=== PATIENT | male | born 1985 | race Caucasian/White ===

== ENCOUNTER 2019-02-17 10:07 | Emergency (ER) | payer MEDICAID, SELFPAY ==
[2019-02-17 10:07] VITALS: BP 139/74; PULSE 94; RESP 18; TEMP 36.4; O2SAT 99; BMI 30.4
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
--- NOTE | 2019-02-17 10:40 | RAD_ITS ---
STUDY: X-RAY - RIGHT KNEE REASON FOR EXAM: Male, 33 years old. Pain following injury. TECHNIQUE: 4 view(s) of the knee. COMPARISON: None. FINDINGS: Normal visualized distal femur. Normal visualized proximal tibia and fibula. Normal proximal tibiofibular articulation. Normal medial femorotibial compartment. Normal lateral femorotibial compartment. Normal patellofemoral articulation. The soft tissue structures are unremarkable. RAD/Knee 4 or More Views IMPRESSION: Normal x-ray examination of the knee. Electronically Signed: Blayne Cabrera, at 11:15 EDT , Service support ,
== END 2019-02-17 11:57 | disposition home or self-care (01) ==
PROVIDERS: Emergency Provider Emergency Medicine; Family Provider Family Medicine; PCP Family Medicine
DX: S83.91XA Sprain of unspecified site of right knee, initial encounter (principal); K21.9 Gastro-esophageal reflux disease without esophagitis; Z79.899 Other long term (current) drug therapy; X58.XXXA Exposure to other specified factors, initial encounter; Y93.89 Activity, other specified; Y92.89 Other specified places as the place of occurrence of the external cause; Y99.8 Other external cause status
CPT/HCPCS: 73564; 99283

== ENCOUNTER 2019-11-10 10:44 | Emergency (ER) | payer MEDICAID, SELFPAY ==
[2019-11-10 10:45] VITALS: BP 146/84; PULSE 97; RESP 16; TEMP 36.4; O2SAT 96; BMI 30.1
--- NOTE | 2019-11-10 10:56 | RAD_ITS ---
STUDY: X-RAY - RIGHT HAND REASON FOR EXAM: Male, 34 years old. PAIN AT BASE OF 5TH METACARPAL -- PT UNABLE TO SEPARATE FINGERS FOR FAN LATERAL TECHNIQUE: 3 view(s) of the hand. COMPARISON: None. FINDINGS: Normal radiocarpal articulation. Normal distal radioulnar joint. Normal visualized carpal bones. Normal carpal articulations Normal carpometacarpal articulation of the thumb. Normal second through fifth carpometacarpal joints. Normal metacarpi. Normal metacarpophalangeal joint of the thumb. Normal interphalangeal joint of the thumb. Normal proximal and distal phalanges of the thumb. Normal metacarpophalangeal joints of the second through fifth fingers. Normal proximal and distal interphalangeal joints of the second through fifth fingers. Normal phalanges of the second through fifth fingers. The soft tissue structures are unremarkable. RAD/Hand Min 3 Views IMPRESSION: Normal x-ray examination of the hand. Electronically Signed: Blayne Cabrera, at 11:17 EST , Service support ,
--- NOTE | 2019-11-10 11:33 | ED.VIS.GEN ---
History of Present Illness Chief Complaint: Upper Extremity Injury Informant: Patient Narrative: Patient went to strike his dog but instead struck the palm of his hand near the fourth and fifth MCP joint. He notes pain some swelling. He is right-hand dominant. Past Medical History - Allergies and Home Meds Allergies/Adverse Reactions: Allergies ibuprofen Allergy (Verified 02/17/19 10:10) Hives Primary Care Physician: Montana Obregon MD [Primary Care Provider] - Smoking Status: Former smoker Review of Systems General: Denies: Chills, Fever, Sweats Eyes: Denies: Visual changes - bilaterally, Diplopia ENT: Denies: Rhinorrhea, Sore throat Cardiovascular: Denies: Chest pain, Palpitations Respiratory: Denies: Dyspnea, Cough, Dyspnea on exertion Gastrointestinal: Denies: Abdominal pain, Nausea, Vomiting, Diarrhea, Melena, Hematochezia Genitourinary: Denies: Dysuria, Hematuria, Frequency Musculoskeletal: Reports: Extremity Pain. Denies: Back pain Skin: Denies: Rash, Wounds Neurological: Denies: Headache, Weakness, Numbness Physical Exam Vital Signs/Narrative: Vital Signs Temp Pulse Resp BP Pulse Ox 11/10/19 10:45 97.5 F L 97 16 146/84 H 96 Inital Vital Signs reviewed: Yes General: Well nourished, Well developed, No Acute Distress Head: Normocephalic, Atraumatic Eyes: Perrl, EOMI ENT: Moist mucous membranes, No rhinorrhea Neck: Supple, Nontender Cardiovascular: Regular rate, Regular rhythm, No murmurs Respiratory: No distress, CTA bilaterally, Chest nontender Abdomen: Soft, Nontender, Nondistended, Normal bowel sounds Back: Nontender, Normal Inspection Extremities: Tenderness - Tenderness along the fourth and fifth metacarpal. No malrotation. Mild swelling. Neurovascularly intact Skin: Normal color, No rash Neurological: Alert, Oriented x3, Cranial nerves II-XII grossly intact, Normal Strength, Normal Sensation Psychological: Normal affect, Normal Mood Diagnostic/Tx/Re-eval - Medical Decision Making X-rays of the hand were negative for fracture. Patient will be treated conservatively as a contusion return if worsening or concerns follow-up 10 to 14 days if not improved ED Disposition - Plan for ED Patient: Disposition: Home or Assisted Living Diagnosis: Contusion of right hand Instructions: CONTUSION, Hand Referrals: Montana Obregon MD [Primary Care Provider] - 10-14 Days if not better
== END 2019-11-10 11:47 | disposition home or self-care (01) ==
PROVIDERS: Emergency Provider Emergency Medicine; PCP Family Medicine
DX: S60.221A Contusion of right hand, initial encounter (principal); Z87.891 Personal history of nicotine dependence; W22.09XA Striking against other stationary object, initial encounter; Y93.K9 Activity, other involving animal care; Y92.009 Unspecified place in unspecified non-institutional (private) residence as the place of occurrence of the external cause; Y99.8 Other external cause status
CPT/HCPCS: 73130; 99282

== ENCOUNTER 2020-04-08 14:12 | Emergency (ER) | payer MEDICAID, SELFPAY ==
[2020-04-08 14:13] VITALS: BP 146/81; PULSE 104; RESP 18; TEMP 36.3; O2SAT 98; BMI 30.8
--- NOTE | 2020-04-08 14:35 | EKG12_ITS ---
Test Reason : DYSRHYTHMIA Blood Pressure : / mmHG Vent. Rate : 082 BPM Atrial Rate : 082 BPM P-R Int : 148 ms QRS Dur : 094 ms QT Int : 356 ms P-R-T Axes : 014 009 022 degrees QTc Int : 415 ms Normal sinus rhythm Moderate voltage criteria for LVH, may be normal variant Borderline ECG Confirmed by NABEEL MOODY, HARJINDER ([id number]), copy editor DERRICK VIEIRA ([id number]) on 04/11/2020 8:19:38 AM Referred By: BB Confirmed By:HARJINDER LEES MD
--- NOTE | 2020-04-08 14:35 | US_ITS ---
STUDY: ABDOMINAL ULTRASOUND - RIGHT UPPER QUADRANT REASON FOR VISIT: Male, 34 years old RUQ PAIN COUPLE MONTHS ON AND OFF CAN BE SEVERE PT ATE AROUND 2PM TODAY TECHNIQUE: Ultrasound evaluation of the right upper quadrant was performed with real-time and static montejo-scale imaging. TECHNICAL QUALITY: Adequate. COMPARISON: None. FINDINGS: Liver: The liver measures 16.1 cm. There is increased echogenicity consistent with fatty infiltration. The bile ducts are within normal limits. There is hepatic color flow. The direction of portal flow is hepatopetal. There is no demonstrated mass lesion. Gallbladder: Normal distended gallbladder. The gallbladder wall measures 2.6 mm. There is a negative sonographic Vitale''s sign. There is no pericholecystic fluid. There is a 9 x 7 x 6 mm nonshadowing hyperechoic nonobstructing filling defect of the gallbladder neck that appears nonmobile and is most likely a gallbladder polyp. There is an additional 1 mm polyp of the anterior gallbladder wall in the fundus of the gallbladder. Negative for stones or sludge. Common Bile Duct (C.B.D.): The common bile duct measures 3.2 mm. Pancreas: Nonvisualized pancreas secondary to bowel gas. There is normal echogenicity of the pancreas. There is no demonstrated pancreatic mass or cyst. Right Kidney: Normal size of the right kidney. The right kidney measures 10.7 x 4.1 x 4.6 cm. Normal renal cortex. The right cortex measures 1.1 cm. There is no demonstrated renal mass or cyst. There is no right hydronephrosis. US/Abdomen Limited IMPRESSION: Fatty liver. Normally distended gallbladder without wall thickening. 9 x 7 x 6 mm nonobstructing polyp of the gallbladder neck and a 1 mm polyp of the gallbladder fundus. Negative for stones or sludge. Negative for pericholecystic fluid. Nondistended common bile duct. Nonvisualized pancreas secondary to bowel gas. Normal right kidney. Electronically Signed: Nataly Donnelly MD at 16:26 EDT , Service support ,
--- NOTE | 2020-04-08 14:35 | ED.VIS.GI ---
History of Present Illness Chief Complaint: Abd Pain Informant: Patient, Significant Other - Abdominal Pain/Flank Pain Onset: Month(s) - Several Context: Sudden Onset - Seems random, no obvious triggers Timing: Intermittent Quality: Aching - Right upper quadrant, Cramping - Periumbilical, Dull - Left chest Current Severity: Mild Maximum Severity: Moderate Worsened by: Food - At times, see below, Movement - Right flank/upper quadrant pain Relieved by: Remaining Still - Nausea/Vomiting/Emesis GI Symptom: Negative for: Nausea, Vomiting - Diarrhea/Melena/Hematochezia GI Symptom: - - Light-colored stools today. Negative for: Diarrhea, Melena, Hematochezia Stool Quality: Negative for: Mucous, Black, Maroon, JAVIER per rectum Associated Symptoms: Negative for: Dysuria, Frequency, Hematuria, Urgency Narrative: Patient has been having 3 different types of abdominal pain. The longest one has been for several months, it in his lateral right upper quadrant, comes and lasts for hours or a day or 2, and goes away, is worse with movement, occasionally he has gotten it 5 or 10 minutes after eating. Not associated with any nausea or vomiting. Over the last 2 days he has had 2 different episodes of discomfort in his left chest just below his breast, but not below the costal margin, that has occurred at rest, seem to be worse with movement and palpation, without any pleuritic component or dyspnea, or radiation. It is not there now. He called his doctor and he keeps referring to it as heart pain and as a result they advised him to come to the ER to have it evaluated today. He takes medication for reflux. He states yesterday he was playing video games when it started, and eventually went away on its own without any specific treatment. He also has been having intermittent periumbilical diffuse abdominal cramping that has occurred after meals, yesterday it occurred after eating mushrooms and a dish that his made, and it was fairly quickly after that. It lasted for 30 or 45 minutes or so before going away, that is only occurred several times. He has had an appendectomy no other abdominal surgeries, he takes a PPI for reflux but no other medications, does not take NSAIDs to any significant degree. He has had no fevers. No cough. No blood in the stool or melena, no nausea or vomiting at all with any of this. No palpitations. He is concerned about the possibility of gallstones. - Past Medical History (1) GERD (gastroesophageal reflux disease) Status: Chronic Past Medical History - Allergies and Home Meds Allergies/Adverse Reactions: Allergies ibuprofen Allergy (Verified 04/08/20 14:13) Hives Primary Care Physician: Montana Obregon MD [Primary Care Provider] - Surgical History: appendectomy Lives: Spouse/ Significant Other Smoking Status: Former smoker Review of Systems General: Denies: Chills, Fever, Sweats Eyes: Denies: Visual changes - bilaterally, Diplopia ENT: Denies: Rhinorrhea, Sore throat Cardiovascular: Reports: Chest pain. Denies: Palpitations Respiratory: Denies: Dyspnea, Cough, Dyspnea on exertion Gastrointestinal: Reports: Abdominal pain. Denies: Nausea, Vomiting, Diarrhea, Melena, Hematochezia Genitourinary: Denies: Dysuria, Hematuria, Frequency Musculoskeletal: Denies: Neck pain, Back pain, Swelling, Extremity Pain Skin: Denies: Rash, Wounds Neurological: Denies: Headache, Weakness, Numbness Physical Exam Vital Signs/Narrative: Vital Signs Temp Pulse Resp BP Pulse Ox 04/08/20 14:13 97.4 F L 104 H 18 146/81 H 98 Inital Vital Signs reviewed: Yes General: Well nourished, Well developed, No Acute Distress - Well-appearing no distress, conversive in full sentences Head: Normocephalic, Atraumatic Eyes: Perrl, EOMI ENT: Moist mucous membranes, No rhinorrhea Neck: Supple, Nontender Cardiovascular: Regular rate, Regular rhythm, No murmurs. Negative for: Tachycardia Respiratory: No distress, CTA bilaterally, Chest nontender Abdomen: Soft, Nondistended, Normal bowel sounds, No masses, Tender - Mild throughout right upper quadrant, both medially and laterally, basically throughout the subcostal margin there. No other areas of abdominal tenderness.. Negative for: Guarding, Rebound tenderness, Vitale's sign Back: Nontender, Normal Inspection. Negative for: CVA tenderness Extremities: Nontender, No edema. Negative for: Calf Tenderness Skin: Normal color, No rash Neurological: Alert, Oriented x3, Cranial nerves II-XII grossly intact, Normal Strength, Normal Sensation Psychological: Normal affect, Normal Mood Diagnostic/Tx/Re-eval Impressions Abdomen Ultrasound 07/10/20 14:35 IMPRESSION: Fatty liver. Normally distended gallbladder without wall thickening. 9 x 7 x 6 mm nonobstructing polyp of the gallbladder neck and a 1 mm polyp of the gallbladder fundus. Negative for stones or sludge. Negative for pericholecystic fluid. Nondistended common bile duct. Nonvisualized pancreas secondary to bowel gas. Normal right kidney. Electronically Signed: Nataly Donnelly MD at 16:26 EDT , Service support , 04/08/20 14:35 Abdomen Limited [US] Stat Laboratory Results 04/08/20 04/08/20 04/08/20 14:46 14:46 16:15 WBC 6.3 RBC 5.57 Hgb 15.4 Hct 47.3 MCV 84.9 MCH 27.6 MCHC 32.6 RDW Std Deviation 40.6 RDW Coeff of Tristin 13.1 Plt Count 246 MPV 10.3 Immature Gran % (Auto) 0.300 Neut % (Auto) 47.9 Lymph % (Auto) 38.6 [place] % (Auto) 6.9 Eos % (Auto) 5.3 H Baso % (Auto) 1.0 Absolute Neuts (auto) 3.0 Absolute Lymphs (auto) 2.42 Nucleated RBC % 0 Sodium 141 Potassium 3.4 L Chloride 107 Carbon Dioxide 29.0 Anion Gap 5 BUN 13 Creatinine 1.13 Estim Creat Clear Calc 93.31 Est GFR (MDRD) Af Amer 94 Est GFR (MDRD) Non-Af 78 BUN/Creatinine Ratio 11.5 Glucose 128 H Calcium 8.5 Total Bilirubin 0.50 AST 21 ALT 42 Alkaline Phosphatase 103 Troponin I < 0.015 Total Protein 7.5 Albumin 3.8 Globulin 3.7 Albumin/Globulin Ratio 1.0 Lipase 102 Urine Color Yellow Urine Clarity Sl. Cloudy Urine pH 6.5 Ur Specific [place] 1.010 Urine Protein Negative Urine Glucose (UA) Normal Urine Ketones Negative Urine Occult Blood 10 H Urine Nitrite Negative Urine Bilirubin Negative Urine Urobilinogen Normal Ur Leukocyte Esterase Negative - Medical Decision Making Cardiac work-up is negative, his EKG is normal, we obtained an ultrasound of his right upper quadrant, showed a polyp or 2 in his gallbladder but no signs of infection/inflammation or pericholecystic fluid, or wall thickening. His liver enzymes are normal as are the rest of his labs. He is reassured. I do not think his chest discomfort on the left side is cardiac. Furthermore do not think it is PE or pericarditis. I think it is either muscular or esophageal-related, he did not have it while he was at the emergency department so certainly I am able to provide limited information on that right now. I did a troponin that came back negative which is reassuring that there is not acute myocarditis, ischemia, or anything else dangerous with regards to his heart at this time. I do not think a CT is needed for his abdomen at this time. He can have further outpatient work-up with his doctor, I gave him a prescription for dicyclomine to use as needed, he is already on a PPI for GERD, and we discussed other things that he could try when he gets these pain such as NSAIDs sparingly, and/or antiacids. They are comfortable with that plan. ED Disposition - Plan for ED Patient: Disposition: Home or Assisted Living Diagnosis: Intermittent generalized abdominal pain, Intermittent left-sided chest pain, Gallbladder polyp Instructions: ED Unknown Causes of Abdominal Pain Male Prescriptions: Dicyclomine HCl [Bentyl] 20 mg PO . Q4-6H PRN #20 cap PRN Reason: abdominal pain Transmission Status: Pending to [facility] Referrals: Montana Obregon MD [Primary Care Provider] - 1 Week if not improving
[2020-04-08 14:54] LABS: Absolute Lymphocyte Count 2.42 X10^3/uL (0.83-4.51); Basophil# 0.06 X10^3/uL; Eosinophil# 0.33 X10^3/uL; Eosinophils% 5.3 % (0-5); Hematocrit 47.3 % (40-54); Hemoglobin 15.4 g/dL (13.0-16.5); Lymphocyte # 2.42 X10^3/ul (4.0); Lymphocyte % 38.6 % (19-41); Mean Corp Hgb Conc 32.6 g/dL (32-36); Mean Corpuscular Hgb 27.6 pg (27.0-32.0); Mean Corpuscular Volume 84.9 fL (80-94); Mean Platelet Vol. 10.3 fl (6.2-12.0); Monocyte# 0.43 X10^3/uL; Monocyte% 6.9 % (0-10); NRBC Flagged by Analyzer 0 % (0-5); Neutrophil # 3.01 X10^3/uL (2.7-7.7); Neutrophil % 47.9 % (47-70); Platelet Count 246 K/mm3 (150-450); RBC Distribution Width CV 13.1 % (11.6-14.6); RBC Distribution Width SD 40.6 fl (35.1-43.9); Red Blood Count 5.57 M/mm3 (4.6-6.2); White Blood Count 6.3 K/mm3 (4.4-11.0)
[2020-04-08 15:15] LABS: AST(SGOT) 21 U/L (15-37); Alanine Aminotransfer ALT/SGPT 42 U/L (16-61); Albumin, Serum 3.8 g/dL (3.2-5.0); Alkaline Phosphatase 103 U/L (45-117); Anion Gap 5 (5-15); BUN 13 mg/dL (7-18); BUN/Creat Ratio 11.5 RATIO (10-20); Calcium,Total 8.5 mg/dL (8.5-10.1); Chloride 107 mmol/L (98-107); Creatinine, Serum 1.13 mg/dL (0.70-1.30); EST Glomerular Filtration Rate 78 mL/min (>60); Est Glom Filt Rate - Afr Amer 94 mL/min (>60); Estimated Creatinine Clearance 93.31 ml/min; Globulin 3.7 g/dL (2.2-4.2); Glucose 128 mg/dL (74-106); Lipase 102 U/L (73-393); Potassium 3.4 mmol/L (3.5-5.1); Protein, Total 7.5 g/dL (6.4-8.2); Sodium Level 141 mmol/L (136-145)
[2020-04-08 16:19] LABS: Bacteria 0 SEEN /hpf (None Seen); Mucous, Urine 0 SEEN /hpf (<or=2+); White Blood Cells 0 SEEN /hpf (0-5)
[2020-04-08 16:37] LABS: Color, Urine Yellow (Yellow); Glucose, Dipstick Normal (Normal); Ketone-Dipstick Negative (Negative); Leukocyte Esterase-Dipstick Negative /ul (Negative); Nitrite-Dipstick Negative (Negative); Occult Blood-Urine 10 /ul (Negative); Protein-Dipstick Negative (Negative); Urine Bilirubin Dipstick Negative (Negative); Urine Clarity Sl. Cloudy (Clear); Urine Urobilinogen Normal (Normal); Urine pH 6.5 (5.0 - 8.0)
[2020-04-08 17:33] VITALS: RESP 18
[2020-04-08 17:33] LABS: Red Blood Cells-Urine 0-5 SEEN /hpf (0-5); Squamous Epithelial Cells - UA 0-5 SEEN /hpf (0-5)
== END 2020-04-08 17:51 | disposition home or self-care (01) ==
PROVIDERS: Emergency Provider Emergency Medicine; PCP Family Medicine
DX: K82.4 Cholesterolosis of gallbladder (principal); R07.9 Chest pain, unspecified; R10.84 Generalized abdominal pain; K21.9 Gastro-esophageal reflux disease without esophagitis; K76.0 Fatty (change of) liver, not elsewhere classified; Z79.899 Other long term (current) drug therapy; Z87.891 Personal history of nicotine dependence
CPT/HCPCS: 76705; 80053; 81001; 83690; 84484; 85025; 93005; 99283; A4216

== ENCOUNTER 2021-09-11 17:07 | Emergency (ER) | payer MEDICAID, SELFPAY ==
[2021-09-11 17:08] VITALS: BP 154/84; PULSE 88; RESP 14; TEMP 36.2; O2SAT 100; BMI 31.1
--- NOTE | 2021-09-11 19:05 | EDS_ITS ---
HPI History of Present Illness Chief Complaint: Chest Other Informant: patient Onset/Context/Timing Onset: Hours Activity at onset: sudden and activity on onset Timing: Continuous Quality: Positive for Aching Location: Left Parasternal (Over 7 left rib anterior axillary line) Current Severity: Mild Maximum Severity: Moderate Worsened By: Exertion, Movement of Arm, Movement of Torso and Breathing Relieved By: Nothing Associated Symptoms: Negative for Nausea, Vomiting, Diaphoresis, Dyspnea, Cough, Fever, Lightheadedness, Acid Reflux and Palpitations Narrative Narrative: Patient is a 36-year-old male who was doing something under the [employer]. When he went to roll he felt a pop and exquisite pain. He had similar pain when he had a fractured rib as well as intercostal muscle strain. He presents for evaluation. He denies shortness of breath. He denies hemoptysis. He denies direct trauma. He did not roll over onto anything. He has no other complaints. Prior Similar Symptoms: Yes (Fractured rib and muscle strain) CVD Risk Factors: Negative for Hypertension, Diabetes, Hypercholesterolemia, Family History 1' </=55 and Smoking PE Risk Factors: Negative for Recent Travel/Surgery, Recent Immobilization, Bety or DVT or PE, Cancer and OCP + Smoking + >/=35 TAD Risk Factors: Negative for Marfan's Syndrome, Hypertension and Family History PFSH PFSH Home Medications omeprazole 20 mg PO DAILY 05/26/16 [History Last Taken Unknown] dicyclomine 20 mg PO . Q4-6H PRN #20 cap 04/08/20 [Rx Last Taken Unknown] hydrocodone-acetaminophen 1 tab PO Q6H PRN PRN 3 Days #10 tablet 09/11/21 [Rx Last Taken Unknown] Allergy/AdvReac Type Severity Reaction Status Date / Time ibuprofen Allergy Hives Verified 09/11/21 17:08 Social History (Updated 09/11/21 @ 19:[address] Chip Bell MD) household members: significant other Smoking Status: Former smoker substance use type: does not use ROS ROS ED Constitutional Constitutional ED: Denies chills, fever(s), subjective, sweats or weight loss Eyes Eyes: Reports none ENT ENT ED: Denies ear pain, rhinorrhea or sore throat Cardiovascular Cardiovascular: Reports as per HPI Respiratory/Chest Respiratory/Chest: Denies cough, dyspnea, dyspnea on exertion or sputum Gastrointestinal Gastrointestinal: Denies abdominal pain, diarrhea, nausea or vomiting Musculoskeletal Musculoskeletal: Denies arthralgias, back pain, myalgias or neck pain Integumentary Denies Abrasions or rash Hematologic/Lymphatic Hematologic/Lymphatic: Denies easy bleeding or easy bruising EXAM Physical Exam Const Vital Signs: 09/11/21 17:08 Temperature 97.1 F L Temperature Source Temporal Pulse Rate 88 Respiratory Rate 14 Blood Pressure 154/84 H Blood Pressure Mean 107 Pulse Ox 100 Oxygen Delivery Method Room Air Positive well nourished, well developed and obese General Appearance ED: well developed and NAD; Negative for pallor Nutritional Appearance: obese HEENT Reports TM's clear and moist mucous membranes normocephalic and atraumatic; Negative for trauma or tenderness Tympanic Membrane ED: Yes TM's clear Eyes PERRL and EOMs intact bilaterally General Eye ED: Negative for pale conjunctiva or scleral icterus Neck no lymphadenopathy, supple and no JVD Chest Wall inspection of chest normal and palpation of chest normal Resp normal respiratory effort and clear to auscultation bilaterally Resp Narrative: Pain to the patient left seventh rib anterior axillary line Effort and Inspection: respiratory distress and pain with movement Cardio regular rate, regular rhythm, S1 normal heart sound and S2 normal heart sound GI normal to inspection, nondistended, normoactive bowel sounds, soft to palpation, non-tender and non-distended; Negative for hepatosplenomegaly Back/Spine no CVA tenderness Extremity normal to inspection Neuro oriented x3 and CN's II-XII intact bilaterally Sensorium / Orientation: awake and alert Motor Exam: strength 5/5 throughout Psych mental status grossly normal Skin no rashes or lesions noted and no wounds General Skin Exam: Negative for jaundice or pallor MDM MDM MDM Narrative Medical decision making narrative: Heart score is and not applicable. Patient with chest wall pain. Will rule out fracture. Radiography Chest X-Ray - ED: 2 View, Read by ED Physician (2 view chest x-ray interpreted by me at 2039. There is no fracture, effusion, pneumothorax. Cardiac silhouette size is unremarkable. Perihilar region unremarkable.), Normal, Heart, Mediastinum, Bony Structures and Chronic Changes Discharge Plan Triage Chief Complaint: Chest Other ED Provider: [facility] Dx/Rx/DC Orders Clinical Impression: Contusion of rib on left side Instructions: ED Contusion, Rib Prescriptions: New hydrocodone-acetaminophen [hydrocodone-acetaminophen] 1 TABLET tablet 1 tab PO Q6H PRN PRN (Reason: Pain) 3 Days Qty: 10 RF: 0 No Action omeprazole 20 MG capsule 20 mg PO DAILY RF: 0 dicyclomine 10 MG capsule 20 mg PO . Q4-6H PRN (Reason: abdominal pain) Qty: 20 RF: 0 Primary Care Provider: Montana Obregon Referrals: Montana Obregon MD [Primary Care Provider] -
--- NOTE | 2021-09-11 20:22 | RAD_ITS ---
INDICATION: Chest pain, left seventh rib EXAMINATION/TECHNIQUE: X-RAY - XR Chest 2 Views COMPARISON: 10/17/2017. FINDINGS: The lungs are clear. The cardiomediastinal silhouette is unremarkable. No pleural effusion or pneumothorax. No acute osseous abnormalities. RAD/Chest PA and Lateral IMPRESSION: No acute radiographic abnormalities. Electronically Signed: Luis Lujan MD at 21:09 EST Tel , Service support ,
[2021-09-11] MEDS: HYDROcodone Bitartrate/Apap 5/325 Tablet PO (20:26)
== END 2021-09-11 20:55 ==
LOC: ED 19:13
PROVIDERS: Emergency Provider Emergency Medicine; PCP Family Medicine
DX: S20.212A Contusion of left front wall of thorax, initial encounter (principal); X50.9XXA Other and unspecified overexertion or strenuous movements or postures, initial encounter; Y93.9 Activity, unspecified; Y92.89 Other specified places as the place of occurrence of the external cause; Y99.8 Other external cause status; Z87.891 Personal history of nicotine dependence
CPT/HCPCS: 71046; 99283